=== PATIENT | female | born 1990 | race Caucasian/White ===

== ENCOUNTER 2017-03-30 01:36 | Emergency (ER) | payer OTHER ==
[2017-03-30 02:35] VITALS: BP 105/68; PULSE 81; TEMP 98.7; BMI 21.9
--- NOTE | 2017-03-30 03:02 | PDOC ---
History of Present Illness - General History Source: Patient Exam Limitations: No Limitations - History of Present Illness Initial Comments: 03/30/17 03:26 The patient is a 26 year old female with no significant PMH who presents to the emergency department with worsening, intermittent RUQ pain that radiates to the back, nausea, and episodes of non-bloody, non-bilious emesis for the past two weeks. The patient states that two weeks ago she began experiencing a random sharp RUQ pain with associated nausea, emesis, and fever. The patient states the RUQ pain was so severe at 2AM this morning waking her up and prompting her visit to the ER. The patient reports no pain after PO intake. The patient states her last meal was steak and mash potatoes for dinner yesterday. The patient reports she had a gastric sleeve 4 years ago and a cholecystectomy 3 years ago. The patients LMP was 3 weeks ago. The patient denies chest pain, shortness of breath, headache and dizziness. Denies fever, chills, diarrhea and constipation. Denies dysuria, frequency, urgency and hematuria. Allergies: NKA Past surgical history: gastric sleeve, liposuction, cholecystectomy Social history: No reported alcohol, cigarette, or drug use. <Geneva Cuenca - Last Filed: 03/30/17 03:26> <Alyssa Sylvester - Last Filed: 03/30/17 06:37> - General Chief Complaint: Pain Stated Complaint: ABDOMINAL PAIN Time Seen by Provider: 03/30/17 02:17 Past History <Geneva Cuenca - Last Filed: 03/30/17 03:26> - Past Medical History Thyroid Disease: No - Surgical History Abdominal Surgery: Yes (I.U.D. insertion 2010) GI Surgery: Yes (Gastric Sleeve) - Immunization History Immunization Up to Date: No - Suicide/Smoking/Psychosocial Hx Smoking Status: No Smoking History: Never smoked Have you smoked in the past 12 months: No Number of Cigarettes Smoked Daily: 0 Information on smoking cessation initiated: No Hx Alcohol Use: No Drug/Substance Use Hx: No Substance Use Type: None <Alyssa Sylvester - Last Filed: 03/30/17 06:37> - Past Medical History Allergies/Adverse Reactions: Allergies Allergy/AdvReac Type Severity Reaction Status Date / Time amoxicillin Allergy Verified 03/30/17 02:33 Home Medications: Ambulatory Orders No Home Medications 0 dose .ROUTE UTDICT 02/21/12 Ondansetron [Zofran Odt -] 4 mg SL BID #14 od.tablet 06/12/13 Oxycodone HCl/Acetaminophen [Percocet 5-325 mg Tablet -] 1 tab PO Q6H #20 tablet 06/12/13 Review of Systems - Review of Systems Able to Perform ROS?: Yes Comments:: 03/30/17 03:27 GENERAL/CONSTITUTIONAL: No fever or chills. No weakness. HEAD, EYES, EARS, NOSE AND THROAT: No change in vision. No ear pain or discharge. No sore throat. CARDIOVASCULAR: No chest pain or shortness of breath. RESPIRATORY: No cough, wheezing, or hemoptysis. GASTROINTESTINAL: (+) RUQ pain. (+) nausea. (+) vomiting. No diarrhea or constipation. GENITOURINARY: No dysuria, frequency, or change in urination. MUSCULOSKELETAL: No joint or muscle swelling or pain. No neck or back pain. SKIN: No rash NEUROLOGIC: No headache, vertigo, loss of consciousness, or change in strength/ sensation. ENDOCRINE: No increased thirst. No abnormal weight change. HEMATOLOGIC/LYMPHATIC: No anemia, easy bleeding, or history of blood clots. ALLERGIC/IMMUNOLOGIC: No hives or skin allergy. <Geneva Cuenca - Last Filed: 03/30/17 03:26> *Physical Exam - Vital Signs Last Vital Signs Temp Pulse Resp BP Pulse Ox 98.7 F 81 14 105/68 100 03/30/17 02:34 03/30/17 02:34 03/30/17 02:34 03/30/17 02:34 03/30/17 02:34 - Physical Exam Comments: 03/30/17 03:27 ADULT EXAM GENERAL: Awake, alert, and fully oriented, in no acute distress HEAD: No signs of trauma EYES: PERRLA, EOMI, sclera anicteric, conjunctiva clear ENT: Auricles normal inspection, hearing grossly normal, nares patent, oropharynx clear without exudates. Moist mucosa NECK: Normal ROM, supple, no lymphadenopathy, JVD, or masses LUNGS: Breath sounds equal, clear to auscultation bilaterally. No wheezes, and no crackles HEART: Regular rate and rhythm, normal S1 and S2, no murmurs, rubs or gallops ABDOMEN: (+) RUQ tenderness. Soft, normoactive bowel sounds. No guarding, no rebound. No masses EXTREMITIES: Normal range of motion, no edema. No clubbing or cyanosis. No cords, erythema, or tenderness NEUROLOGICAL: Cranial nerves II through XII grossly intact. Normal speech, normal gait SKIN: Warm, Dry, normal turgor, no rashes or lesions noted. <Geneva Cuenca - Last Filed: 03/30/17 03:26> - Vital Signs Last Vital Signs Temp Pulse Resp BP Pulse Ox 98.7 F 81 14 105/68 100 03/30/17 02:34 03/30/17 02:34 03/30/17 02:34 03/30/17 02:34 03/30/17 02:34 <Alyssa Sylvester - Last Filed: 03/30/17 06:37> ED Treatment Course - LABORATORY CBC & Chemistry Diagram: 03/30/17 03:39 03/30/17 03:39 <Alyssa Sylvester - Last Filed: 03/30/17 06:37> Medical Decision Making - Medical Decision Making 03/30/17 06:34 Pt comes with gassy abd pain. In the ER she has no rebound and no guarding and she appears well. Labs normal. Pt will be asked to follow with PMD. Stable for discharge. She is feeling better. <Alyssa Sylvester - Last Filed: 03/30/17 06:37> *DC/Admit/Observation/Transfer - Attestations Scribe Attestion: 03/30/17 03:28 Documentation prepared by Geneva Cuenca, acting as medical equipment repair technician for Alyssa Sylvester MD. <Geneva Cuenca - Last Filed: 03/30/17 03:26> - Discharge Dispostion Admit: No <Alyssa Sylvester - Last Filed: 03/30/17 06:37> Diagnosis at time of Disposition: Gas pain - Discharge Dispostion Disposition: HOME Condition at time of disposition: Stable - Referrals Referrals: STAFF,NOT ON [Primary Care Provider] - - Patient Instructions Printed Discharge Instructions: DI for Dyspepsia - Post Discharge Activity
[2017-03-30 03:47] LABS: EOS % 2.4 % (0-4.5); HEMATOCRIT 35.9 % (32.4-45.2); HEMOGLOBIN 11.7 GM/dL (10.7-15.3); LYMPH % 33.3 % (8-40); MCH 28.6 pg (25.7-33.7); MCHC 32.5 g/dl (32.0-36.0); MEAN CELL VOLUME 87.8 fl (80-96); MONO % 7.8 % (3.8-10.2); NEUT % 55.5 % (42.8-82.8); PLATELET COUNT 229 K/MM3 (134-434); RBC 4.09 M/mm3 (3.60-5.2); RDW 13.5 % (11.6-15.6); WHITE BLOOD COUNT 5.3 K/mm3 (4.0-10.0)
[2017-03-30 04:24] LABS: ALBUMIN 3.2 g/dl (3.4-5.0); AMYLASE 50 U/L (25-115); ANION GAP 9 (8-16); BILIRUBIN,TOTAL 0.5 mg/dL (0.2-1.0); BLOOD UREA NITROGEN 11 mg/dL (7-18); CALCIUM 8.6 mg/dL (8.5-10.1); CHLORIDE 106 mmol/L (98-107); CO2 26 mmol/L (21-32); CREATININE 0.5 mg/dL (0.55-1.02); GLUCOSE,RANDOM 81 mg/dL (74-106); LIPASE 117 U/L (73-393); POTASSIUM 4.2 mmol/L (3.5-5.1); SGOT/AST 26 U/L (15-37); SGPT/ALT 28 U/L (12-78); SODIUM 141 mmol/L (136-145); TOT PROT 6.1 g/dl (6.4-8.2)
[2017-03-30 04:25] LABS: ALK PHOS 35 U/L (45-117)
== END 2017-03-30 05:03 | disposition home or self-care (01) ==
LOC: JER 01:36
DX: R14.1 Gas pain (principal)
CPT/HCPCS: 36415; 80053; 82150; 83690; 84702; 85025; 99281-25

== ENCOUNTER 2019-11-23 17:51 | Emergency (ER) | payer OTHER ==
[2019-11-23] MEDS ORDERED: DIPHTH,PERTUSS(ACELL),TET 0.5 ML DISP.SYRIN IM ONE ×2 (18:06→18:18)
[2019-11-23] MEDS ORDERED: DEXAMETHASONE SOD PHOSPHATE 10 MG/1 ML VIAL IM ONE (18:06)
--- NOTE | 2019-11-23 18:06 | PDOC ---
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 With rash on R arm and tingling in her mouth. PE: No mouth swelling no drooling no angioedema Rash to R forearm Swelling to PIP of R 2nd digit A/P: Tetanus Benadryl Dexamethasone Pt to precede to ED for further evaluation and treatment.
[2019-11-23] MEDS ORDERED: diphenhydrAMINE HCL 25 MG CAPSULE (FP) PO ONE (18:07)
[2019-11-23 18:08] VITALS: TEMP 98.4; BMI 24.9
[2019-11-23] MEDS ORDERED: CLINDAMYCIN 600MG PREMIX IVPB 600 MG/50 ML BAG IVPB ONE ×2 (18:25→18:43)
[2019-11-23 18:50] LABS: BASO % 0.4 % (0-2.0); EOS % 1.5 % (0-4.5); HEMATOCRIT 39.7 % (32.4-45.2); HEMOGLOBIN 12.9 GM/dL (10.7-15.3); LYMPH % 5.9 % (8-40); MCH 28.8 pg (25.7-33.7); MCHC 32.6 g/dl (32.0-36.0); MEAN CELL VOLUME 88.4 fl (80-96); MEAN PLT VOLUME 8.3 fl (7.5-11.1); MONO % 3.8 % (3.8-10.2); NEUT % 88.4 % (42.8-82.8); PLATELET COUNT 208 K/MM3 (134-434); RBC 4.49 M/mm3 (3.60-5.2); RDW 13.1 % (11.6-15.6); WHITE BLOOD COUNT 7.8 K/mm3 (4.0-10.0)
[2019-11-23 19:15] LABS: BILIRUBIN,TOTAL 0.8 mg/dL (0.2-1); BLOOD UREA NITROGEN 9.7 mg/dL (7-18); CREATININE 0.6 mg/dL (0.55-1.3); POTASSIUM 3.8 mmol/L (3.5-5.1); TOT PROT 7.6 g/dl (6.4-8.2)
--- NOTE | 2019-11-23 20:35 | PDOC ---
History of Present Illness - History of Present Illness Initial Comments: 11/23/19 20:30 28-year-old female without comorbidities presents for evaluation of a wound on her right index finger. Patient states she was opening a bottle of wine when her hand slipped causing a small laceration on her finger 4 days ago. Since that time her finger has become red swollen and painful. She has no systemic symptoms. She points to the radial aspect of the skin overlying the PIPJ on the volar aspect of the right index finger. <Reilly Davis - Last Filed: 11/23/19 20:30> <Inga Baig - Last Filed: 11/26/19 07:50> - General Chief Complaint: Allergic Reaction Stated Complaint: ALLERGIC REACTION Time Seen by Provider: 11/23/19 17:57 Past History - Medical History COPD: No Thyroid Disease: No Other medical history: RA - Surgical History Abdominal Surgery: Yes (I.U.D. insertion 2010) Cholecystectomy: Yes GI Surgery: Yes (Gastric Sleeve) - Reproductive History Is Patient Now?: No - Immunization History Immunization Up to Date: No - Psycho-Social/Smoking History Smoking Status: No Smoking History: Never smoked Have you smoked in the past 12 months: No Number of Cigarettes Smoked Daily: 0 - Substance Abuse Hx (Audit-C & DAST Scrn) How often the patient has a drink containing alcohol: Never Score: In Men: 4 or > Positive; In Women: 3 or > Positive: 0 Screen Result (Pos requires Nsg. Audit-10AR): Negative In the last yr the pt used illegal drug/Rx for NonMed reason: No Score: Yes response is considered Positive: 0 Screen Result (Positive result requires Nsg. DAST-10): Negative <Reilly Davis - Last Filed: 11/23/19 20:30> <Inga Baig - Last Filed: 11/26/19 07:50> - Medical History Allergies/Adverse Reactions: Allergies Allergy/AdvReac Type Severity Reaction Status Date / Time amoxicillin Allergy Verified 11/24/19 02:07 Home Medications: Ambulatory Orders No Home Medications 0 dose .ROUTE UTDICT 02/21/12 Ondansetron [Zofran Odt -] 4 mg SL BID #14 od.tablet 06/12/13 Oxycodone HCl/Acetaminophen [Percocet 5-325 mg Tablet -] 1 tab PO Q6H #20 tablet 06/12/13 Clindamycin [Cleocin -] 300 mg PO TID #21 capsule 11/23/19 Review of Systems - Review of Systems Constitutional: No: Fever <Reilly Davis - Last Filed: 11/23/19 20:30> *Physical Exam - Vital Signs Last Vital Signs Temp Pulse Resp BP Pulse Ox 98.4 F 104 H 20 112/76 100 11/23/19 18:01 11/23/19 18:01 11/23/19 18:01 11/23/19 18:01 11/23/19 18:01 - Physical Exam 11/23/19 20:30 There is a small superficial abrasion on the radial aspect of the right index finger on the skin overlying the PIPJ. There is surrounding erythema on the volar aspect of the finger which streaks up the arm on the volar aspect of the forearm. To the level of the elbow. There is no axillary adenopathy. There is no sausagelike edema of the finger pain at the flexor surface of the hand or pain with passive stretch there is no pain with passive motion of the finger. There is painful active flexion of the PIPJ. Otherwise neurovascular intact. <Reilly Davis - Last Filed: 11/23/19 20:30> - Vital Signs Last Vital Signs Temp Pulse Resp BP Pulse Ox 98.4 F 90 18 110/72 98 11/23/19 18:01 11/23/19 20:56 11/23/19 20:56 11/23/19 20:56 11/23/19 20:56 <Inga Baig - Last Filed: 11/26/19 07:50> ED Treatment Course - LABORATORY CBC & Chemistry Diagram: 11/23/19 18:25 11/23/19 18:25 - ADDITIONAL ORDERS Additional order review: Laboratory Results 11/23/19 11/23/19 18:25 18:25 Sodium 137 Potassium 3.8 Chloride 104 Carbon Dioxide 24 Anion Gap 9 BUN 9.7 Creatinine 0.6 Est GFR (CKD-EPI)AfAm 142.76 Est GFR (CKD-EPI)NonAf 123.17 Random Glucose 89 Calcium 9.0 Total Bilirubin 0.8 AST 17 ALT 23 Alkaline Phosphatase 41 L Total Protein 7.6 Albumin 4.0 Serum , Qual Negative 11/23/19 18:25 RBC 4.49 MCV 88.4 MCHC 32.6 RDW 13.1 MPV 8.3 Neutrophils % 88.4 H D Lymphocytes % 5.9 L D Monocytes % 3.8 Eosinophils % 1.5 Basophils % 0.4 - Medications Given in the ED: ED Medications Discontinued Medications Generic Name Dose Route Start Last Admin Trade Name Geneq PRN Reason Stop Dose Admin Dexamethasone Sodium Phosphate 10 mg 11/23/19 18:06 11/23/19 18:47 Decadron Injection - IM 11/23/19 18:07 Not Given ONCE ONE Diphenhydramine HCl 50 mg 11/23/19 18:07 11/23/19 18:47 Benadryl - PO 11/23/19 18:08 Not Given ONCE ONE Diphtheria/Tetanus/Acell Pertussis 0.5 ml 11/23/19 18:06 11/23/19 18:18 Boostrix - IM 11/23/19 18:07 0.5 ml .ONCE ONE Administration Clindamycin Phosphate 600 mg in 50 mls @ 100 mls/hr 11/23/19 18:25 11/23/19 18:46 Cleocin 600 Mg Premix Ivpb - IVPB 11/23/19 18:54 100 mls/hr ONCE ONE Administration <Reilly Davis - Last Filed: 11/23/19 20:30> - LABORATORY CBC & Chemistry Diagram: 11/23/19 18:25 11/23/19 18:25 - ADDITIONAL ORDERS Additional order review: 11/23/19 18:25 Blood Culture - Preliminary Blood - Peripheral Venous NO GROWTH OBTAINED AFTER 48 HOURS, INCUBATION TO CONTINUE FOR 3 DAYS. 11/23/19 18:25 Blood Culture - Preliminary Blood - Peripheral Venous NO GROWTH OBTAINED AFTER 48 HOURS, INCUBATION TO CONTINUE FOR 3 DAYS. 11/23/19 18:25 RBC 4.49 MCV 88.4 MCHC 32.6 RDW 13.1 MPV 8.3 Neutrophils % 88.4 H D Lymphocytes % 5.9 L D Monocytes % 3.8 Eosinophils % 1.5 Basophils % 0.4 - Medications Given in the ED: ED Medications Discontinued Medications Generic Name Dose Route Start Last Admin Trade Name Geneq PRN Reason Stop Dose Admin Dexamethasone Sodium Phosphate 10 mg 11/23/19 18:06 11/23/19 18:47 Decadron Injection - IM 11/23/19 18:07 Not Given ONCE ONE Diphenhydramine HCl 50 mg 11/23/19 18:07 11/23/19 18:47 Benadryl - PO 11/23/19 18:08 Not Given ONCE ONE Diphtheria/Tetanus/Acell Pertussis 0.5 ml 11/23/19 18:06 11/23/19 18:18 Boostrix - IM 11/23/19 18:07 0.5 ml .ONCE ONE Administration Clindamycin Phosphate 600 mg in 50 mls @ 100 mls/hr 11/23/19 18:25 11/23/19 18:46 Cleocin 600 Mg Premix Ivpb - IVPB 11/23/19 18:54 100 mls/hr ONCE ONE Administration Ibuprofen 600 mg 11/23/19 20:37 11/23/19 20:55 Motrin - PO 11/23/19 20:38 600 mg ONCE ONE Administration <Inga Baig - Last Filed: 11/26/19 07:50> Medical Decision Making - Medical Decision Making 11/23/19 20:31 Patient's erythema improved with IV clindamycin. Patient instructed to discontinue p.o. Keflex patient started on clindamycin p.o. orthopedic hand surgery follow-up was given and close follow-up with a wound check in 12 hours in the emergency room with myself tomorrow morning was agreed upon with the patient. Clindamycin called into patient's pharmacy I have reviewed the pathophysiology with the patient. They are in agreement with the treatment plan all questions were answered to their satisfaction. Understanding for follow-up without fail was also conveyed to the patient. Again they are in agreement. <Reilly Davis - Last Filed: 11/23/19 20:30> - Medical Decision Making Called to [facility] to evaluate patient. Recommend IV abx and admission due to lymphatic streaking. No signs of flexor tenosynovitis. <Inga Baig - Last Filed: 11/26/19 07:50> Discharge - Discharge Information Problems reviewed: Yes - Admission No <Reilly Davis - Last Filed: 11/23/19 20:30> <Inga Baig - Last Filed: 11/26/19 07:50> - Discharge Information Clinical Impression/Diagnosis: Cellulitis of finger, right Condition: Stable Disposition: HOME - Additional Discharge Information Prescriptions: Clindamycin [Cleocin -] 300 mg PO TID #21 capsule - Follow up/Referral Referrals: Bernard Freire [Primary Care Provider] - Eleazar Collier MD [Staff Physician] - - Patient Discharge Instructions Additional Instructions: Please start the antibiotics as directed. Without fail follow-up with orthopedic hand surgery in 2 to 3 days for further evaluation and treatment options. Tylenol and Motrin for pain as directed. Return to the emergency room room tomorrow morning at 11 AM for a wound check by myself. I will be here to continue your care and for continuity of treatment. - Post Discharge Activity Work/Back to School Note: Back to Work
[2019-11-23] MEDS ORDERED: IBUPROFEN 600 MG TABLET (FP) PO ONE ×2 (20:37→20:48)
[2019-11-23 20:57] VITALS: BP 110/72; PULSE 90
== END 2019-11-23 20:57 | disposition home or self-care (01) ==
LOC: JER 17:51
PROC: 3E03329 Introduction of Other Anti-infective into Peripheral Vein, Percutaneous Approach (ICD-10-PCS; principal; 2019-11-23)
PROC: 3E0234Z Introduction of Serum, Toxoid and Vaccine into Muscle, Percutaneous Approach (ICD-10-PCS; 2019-11-23)
DX: L03.011 Cellulitis of right finger (principal)
CPT/HCPCS: 36415; 80053; 84703; 85025; 87040; 90715; 99284-25; U0003

== ENCOUNTER 2019-11-24 01:10 | Emergency (ER) | payer OTHER ==
[2019-11-24 02:07] VITALS: BMI 25.7
--- NOTE | 2019-11-24 02:07 | PDOC ---
Attending Attestation - Resident Resident Name: Keyonna Ann - ED Attending Attestation I have performed the following: I have examined & evaluated the patient, The case was reviewed & discussed with the resident, I agree w/resident's findings & plan - HPI HPI: 11/24/19 02:26 see resident hpi - Physicial Exam PE: 11/24/19 02:27 see resident exam - Medical Decision Making 11/24/19 02:27 28-year-old female seen earlier today with swelling and pain to the right second digit after cutting it on a wine veneer stapler with redness extending through the hand into the forearm given antibiotics with improvement but now worse with chills Patient found to be febrile on arrival Finger is held in flexion with some tenderness over the flexor surface and wound with swelling, there is no pain with extension Plan for call to for hand consult and transfer Discharge - Discharge Information Problems reviewed: Yes Clinical Impression/Diagnosis: Cellulitis of hand, right Condition: Fair - Follow up/Referral Referrals: Bernard Freire [Primary Care Provider] - - Patient Discharge Instructions - Post Discharge Activity
--- NOTE | 2019-11-24 02:32 | PDOC ---
History of Present Illness - General Chief Complaint: SIRS, Suspected/Possible Stated Complaint: CHILLS AND STOMACH CRAMPS Time Seen by Provider: 11/24/19 02:06 - History of Present Illness Initial Comments: 11/24/19 02:32 HPI: 28 y/o F with no pmh recently in the ER a few hours ago with right index finger cellulitis DCd after IV clinda and sent on PO clinda returning with worsening erythema, chills, and fever. Patient reports she had continuous chills since DC and reports pain is worsened. Erythema is now tracking towards axilla. She denies SANTANA, n/v, chest pain, SOB. Returned to ER for eval given earlier return pcxn. PMHx: as noted above ROS: as noted SHx: Denies tobacco use; no alcohol use; no rec drugs Allergies: NKDA ROS: GENERAL/CONSTITUTIONAL: +fever and chills. No weakness. HEAD, EYES, EARS, NOSE AND THROAT: No change in vision. No ear pain or discharge. No sore throat. CARDIOVASCULAR: No chest pain or shortness of breath RESPIRATORY: No cough, wheezing, or hemoptysis. GASTROINTESTINAL: No nausea, vomiting, diarrhea or constipation. GENITOURINARY: No dysuria, frequency, or change in urination. MUSCULOSKELETAL: +right index finger erythema and edema. SKIN: + rash NEUROLOGIC: No headache, vertigo, loss of consciousness, or change in strength/sensation. ENDOCRINE: No increased thirst. No abnormal weight change HEMATOLOGIC/LYMPHATIC: No anemia, easy bleeding, or history of blood clots. ALLERGIC/IMMUNOLOGIC: No hives or skin allergy. PE: GENERAL: Awake, alert, and fully oriented, no acute distress HEAD: No signs of trauma, normocephalic, atraumatic EYES: EOMI, sclera anicteric, conjunctiva clear ENT: Auricles normal inspection, hearing grossly normal, nares patent, oropharynx clear without exudates. Moist mucosa NECK: Normal ROM, no lymphadenopathy LUNGS: No increased work of breathing, symmetrical chest rise, clear to auscultation bilaterally, no wheezes, crackles or rhonchi HEART: Regular rate, regular rhythm, normal S1 and S2, no murmur, peripheral pulses 2+ and equal bilaterally. ABDOMEN: Soft, nondistended, nontender. No guarding, no rebound. No masses. No CVAT MUSCULOSKELETAL: small superficial abrasion on the radial aspect of the right index finger on the skin overlying the PIPJ. There is surrounding erythema on the volar aspect of the finger which streaks up the arm on the volar aspect of the forearm towards the axilla. There is no axillary adenopathy. Finger is held in passive flexion with circumferential edema with ttp on extension and on percussion. There is painful active flexion of the PIPJ. Otherwise neurovascular intact. NEUROLOGICAL: Cranial nerves II through XII grossly intact. Normal speech, stable gait, no focal sensorimotor deficits SKIN: Warm, Dry, normal turgor, no rashes or lesions noted Past History - Medical History Allergies/Adverse Reactions: Allergies Allergy/AdvReac Type Severity Reaction Status Date / Time amoxicillin Allergy Verified 11/24/19 02:07 Home Medications: Ambulatory Orders No Home Medications 0 dose .ROUTE UTDICT 02/21/12 Ondansetron [Zofran Odt -] 4 mg SL BID #14 od.tablet 06/12/13 Oxycodone HCl/Acetaminophen [Percocet 5-325 mg Tablet -] 1 tab PO Q6H #20 tablet 06/12/13 Clindamycin [Cleocin -] 300 mg PO TID #21 capsule 11/23/19 COPD: No Thyroid Disease: No - Surgical History Abdominal Surgery: Yes (I.U.D. insertion 2010) Cholecystectomy: Yes GI Surgery: Yes (Gastric Sleeve) - Reproductive History Is Patient Now?: No - Immunization History Immunization Up to Date: No - Psycho-Social/Smoking History Smoking Status: No Smoking History: Never smoked Have you smoked in the past 12 months: No Number of Cigarettes Smoked Daily: 0 Information on smoking cessation initiated: No - Substance Abuse Hx (Audit-C & DAST Scrn) How often the patient has a drink containing alcohol: Never Score: In Men: 4 or > Positive; In Women: 3 or > Positive: 0 Screen Result (Pos requires Nsg. Audit-10AR): Negative In the last yr the pt used illegal drug/Rx for NonMed reason: No Score: Yes response is considered Positive: 0 Screen Result (Positive result requires Nsg. DAST-10): Negative *Physical Exam - Vital Signs Last Vital Signs Temp Pulse Resp BP Pulse Ox 101.3 F H 130 H 18 105/63 96 11/24/19 01:50 11/24/19 01:50 11/24/19 01:50 11/24/19 01:50 11/24/19 01:50 Medical Decision Making - Medical Decision Making 11/24/19 02:58 28 y/o F with no pmh recently in the ER a few hours ago with right index finger cellulitis DCd after IV clinda and sent on PO clinda returning with worsening erythema, chills, and fever. T 101.3 and HR 130. PE with small superficial abrasion on the radial aspect of the right index finger on the skin overlying the PIPJ. There is surrounding erythema on the volar aspect of the finger which streaks up the arm on the volar aspect of the forearm towards the axilla. There is no axillary adenopathy. Finger is held in passive flexion with circumferential edema with ttp on extension and on percussion. There is painful active flexion of the PIPJ. Otherwise neurovascular intact. -ivf, ofirmev -[facility] tx center: accepted by Dr Sewell; tx initiated -discussed with patient and agreeable with plan; consent signed -all questions answered Discharge - Discharge Information Problems reviewed: Yes Clinical Impression/Diagnosis: Cellulitis of hand, right Condition: Fair Disposition: TRANSFER ACUTE CARE/OTHER HOSP - Follow up/Referral Referrals: Bernard Freire [Primary Care Provider] - - Patient Discharge Instructions - Post Discharge Activity - Transfer to Acute Care Facility Receiving Facility Name: [facility] Accepting Physician:: Dr Sewell
[2019-11-24] MEDS ORDERED: SODIUM CHLORIDE 1,000 ML IV STA (02:42)
[2019-11-24] MEDS ORDERED: ACETAMINOPHEN 1000 MG/100 ML VIAL (NON FORMULARY) IVPB ONE (02:42)
[2019-11-24] MEDS ORDERED: ACETAMINOPHEN INJECTION 100 ML IVPB ONE (02:44)
[2019-11-24 03:18] VITALS: PULSE 112
[2019-11-24 03:40] VITALS: BP 90/58; TEMP 99.7
--- NOTE | 2019-11-26 14:59 | EKG ---
Test Reason : Blood Pressure : / mmHG Vent. Rate : 119 BPM Atrial Rate : 119 BPM P-R Int : 136 ms QRS Dur : 082 ms QT Int : 288 ms P-R-T Axes : 077 073 054 degrees QTc Int : 405 ms SINUS TACHYCARDIA NO PREVIOUS ECGS AVAILABLE Confirmed by LUKE JOSUE MD ([id number]) on 11/26/2019 2:59:08 PM Referred By: Confirmed By:LUKE JOSUE MD
== END 2019-11-24 03:42 | disposition short-term general hospital (02) ==
LOC: JER 01:10
PROC: 3E033NZ Introduction of Analgesics, Hypnotics, Sedatives into Peripheral Vein, Percutaneous Approach (ICD-10-PCS; principal; 2019-11-24)
PROC: 3E0337Z Introduction of Electrolytic and Water Balance Substance into Peripheral Vein, Percutaneous Approach (ICD-10-PCS; 2019-11-24)
DX: L03.113 Cellulitis of right upper limb (principal)
CPT/HCPCS: 93005; 93010; 99284-25; J0131

== ENCOUNTER 2022-07-16 19:09 | Emergency (ER) | payer OTHER ==
[2022-07-16 19:36] VITALS: BP 117/78; PULSE 78; RESP 18; BMI 29.9
== END 2022-07-16 22:20 | disposition left against medical advice (07) ==
LOC: JERFT 19:09 → JER 19:09 → JERFT 22:20
DX: M79.604 Pain in right leg (principal); M25.551 Pain in right hip; M79.671 Pain in right foot; R51.9 Headache, unspecified
CPT/HCPCS: 99281-25